=== PATIENT | female | born 1975 | race African-American/Black ===

== ENCOUNTER 2018-08-10 20:37 | Emergency (ER) | payer OTHER ==
[~2018-08-10] VITALS: Ht 167.6 cm; Wt 101.6 kg
[~2018-08-10 20:37] MED LIST: ALEVE220 M1 PO; GLUCOPHAGE XR500 MG; MIRENA1 EACH IY; NOHOMEMEDICATIONS; NORCO 5-325 TA1 EACH PO; PERCOCET 5-3251 EACH PO; PHENADOZ25 MG RC; PHENERGAN 25 MG25 M1 PO; ZOFRAN ODT4 MG PO; ZOFRAN4 MG PO
[2018-08-10 21:40] LABS: ABSOLUTE NEUTROPHILS 3.8 thou/uL (1.4-8.2); BASOPHILS 0.5 % (0.0-2.0); EOSINOPHILS 1.6 % (0.0-3.0); HEMATOCRIT 35.1 % (37.0-47.0); HEMOGLOBIN 11.6 gm/dL (12.0-15.0); LYMPHOCYTES 34.7 % (24.0-44.0); MCH 32.3 pg (26.0-34.0); MCHC 33.1 g/dL (28.0-37.0); MCV 97.6 fL (80.0-100.0); MONOCYTES 8.9 % (1.0-8.0); PLATELET COUNT 135 thou/uL (150-400); POLYS 54.3 % (36.0-66.0); RBC 3.59 mil/uL (4.20-5.00); RDW 13.2 % (10.5-14.5)
[2018-08-10 21:47] LABS: ANION GAP 8 mmol/L (7-16); BUN 11 mg/dL (7-18); CALCIUM 8.9 mg/dL (8.5-10.1); CHLORIDE 105 mmol/L (98-107); CO2 23 mmol/L (21-32); CREATININE 0.6 mg/dL (0.6-1.0); GLUCOSE 105 mg/dL (74-106); POTASSIUM 4.3 mmol/L (3.5-5.1); SODIUM 136 mmol/L (136-145)
[2018-08-10 21:56] LABS: TROPONIN-I <0.06 ng/mL (<0.06)
[2018-08-10 23:20] VITALS: BP 134/69
--- NOTE | 2018-08-11 07:55 | EKG ---
[place] [address] [facility] [place] [place] [address] ELECTROCARDIOGRAM REPORT Name: BOBO HOLDERNE Room #: [facility] [id number] ������������������ Admission: 08/10/18 ������������������ Attend Phys: Discharge: 08/10/18 ������������������ Date of : 79 Report #: [id number] ����������������������������������������������������������������� [id number] THIS REPORT FOR: //name// 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 : 1975 Requested By: Tello Rodarte Order Number: [id number] MD: Darrian Case Measurements Intervals [place] Rate: 62 P: 21 FL: 142 QRS: 58 QRSD: 84 T: 31 QT: 395 QTc: 401 Interpretive Statements Sinus rhythm Atrial premature complex ST elev, probable normal early repol pattern No previous ECG available for comparison Electronically Signed On 08-11-2018 7:55:07 CDT by Darrian Case [email or web address] ��������������������������������������������� <ELECTRONICALLY SIGNED> ���������������������������������������� By: Darrian Case MD, [facility] ��������������������������������������������� 08/11/18 [id number] Darrian Csae MD, FACC /EPI
== END 2018-08-10 23:22 | disposition home or self-care (01) ==
LOC: ER 20:37
PROVIDERS: Emergency Medicine
DX: R07.89 Other chest pain (principal); Z90.721 Acquired absence of ovaries, unilateral